=== PATIENT | female | born 1995 | race Caucasian/White ===

== ENCOUNTER 2017-03-21 12:04 | Emergency (ER) | payer BC ==
[2017-03-21] MEDS ORDERED: LORATADINE 10 MG TABLET PO ONE (12:55)
[2017-03-21] MEDS ORDERED: PSEUDOEPHEDRINE HCL 30 MG TABLET PO ONE (12:55)
[2017-03-21] MEDS ORDERED: IBUPROFEN 800 MG TABLET PO ONE (12:55)
--- NOTE | 2017-03-21 13:01 | ER Document Report ---
ED ENT - General Chief Complaint: Sore Throat Stated Complaint: SORE THROAT BLOODY MUCUS Time Seen by Provider: 03/21/17 12:40 Mode of Arrival: Ambulatory Information source: Patient Notes: 21-year-old female presents to ED for cough congestion sputum since Thursday. She states she also has a sore throat. Patient states she coughed up a little bit of mucus blood-streaked this morning. Patient states she is used NyQuil DayQuil and use the Mucinex this morning. TRAVEL OUTSIDE OF THE [place] IN LAST 30 DAYS: No - HPI Patient complains to provider of: Nose problem, Throat problem Onset: Other - Thursday Onset/Duration: Gradual Quality of pain: Achy Severity: Moderate Pain Level: 2 Context: Recent Illness Location of pain: Nose, Throat Associated symptoms: Congestion, Cough, Runny nose, Sinus drainage, Sore throat. denies: Fever Similar symptoms previously: Yes Recently seen / treated by doctor: No - Related Data Allergies/Adverse Reactions: Penicillins Allergy (Verified 03/21/17 12:05) Past Medical History - General Information source: Patient - Social History Smoking Status: Current Some Day Smoker Cigarette use (# per day): Yes - 2 cigarettes a week Chew tobacco use (# tins/day): No Smoking Education Provided: Yes - Less than 2 minutes Frequency of alcohol use: Social - Wine about weekly Drug Abuse: None Occupation: [employer] Lives with: Alone Family History: Hyperlipidemia, Hypertension, Malignancy Patient has suicidal ideation: No Patient has homicidal ideation: No - Past Medical History Cardiac Medical History: Reports: None Pulmonary Medical History: Reports: None EENT Medical History: Reports: None Neurological Medical History: Reports: None Endocrine Medical History: Reports: None Renal/ Medical History: Reports: None Malignancy Medical History: Reports: None GI Medical History: Reports: None Musculoskeltal Medical History: Reports None Skin Medical History: Reports None Psychiatric Medical History: Reports: None Traumatic Medical History: Reports: None Infectious Medical History: Reports: None Surgical Hx: Negative Past Surgical History: Reports: None - Immunizations Immunizations up to date: Yes Review of Systems - Review of Systems Constitutional: Recent illness EENT: Nose discharge, Sinus discharge, Throat pain Cardiovascular: No symptoms reported Respiratory: Cough, Sputum Gastrointestinal: No symptoms reported Genitourinary: No symptoms reported Female Genitourinary: No symptoms reported Musculoskeletal: No symptoms reported Skin: No symptoms reported Hematologic/Lymphatic: No symptoms reported Neurological/Psychological: No symptoms reported Physical Exam - Vital signs Vitals: Temp Pulse Resp BP Pulse Ox 98.2 F 65 16 113/75 98 03/21/17 12:10 03/21/17 12:10 03/21/17 12:10 03/21/17 12:10 03/21/17 12:10 Interpretation: Normal - General General appearance: Appears well, Alert - HEENT Head: Normocephalic, Atraumatic Eyes: Normal Pupils: PERRL Ears: Normal External canal: Normal Tympanic membrane: Normal Sinus: Normal Nasal: Purulent discharge, Swelling Mouth/Lips: Normal Mucous membranes: Normal Pharynx: Normal Neck: Normal - Respiratory Respiratory status: No respiratory distress Chest status: Nontender. No: Tender Breath sounds: Productive cough. No: Rales, Rhonchi, Stridor, Wheezing Chest palpation: Normal - Cardiovascular Rhythm: Regular Heart sounds: Normal auscultation Murmur: No - Abdominal Inspection: Normal Distension: No distension Bowel sounds: Normal Tenderness: Nontender Organomegaly: No organomegaly - Back Back: Normal, Nontender - Extremities General upper extremity: Normal inspection, Nontender, Normal color, Normal ROM , Normal temperature General lower extremity: Normal inspection, Nontender, Normal color, Normal ROM , Normal temperature, Normal weight bearing. No: Aj's sign - Neurological Neuro grossly intact: Yes Cognition: Normal Orientation: AAOx4 [place] Coma Scale Eye Opening: Spontaneous [place] Coma Scale Verbal: Oriented [place] Coma Scale Motor: Obeys Commands Junior Coma Scale Total: 15 Speech: Normal Motor strength normal: LUE, RUE, LLE, RLE Sensory: Normal - Psychological Associated symptoms: Normal affect, Normal mood - Skin Skin Temperature: Warm Skin Moisture: Dry Skin Color: Normal Course - Re-evaluation Re-evalutation: 03/21/17 13:04 Assessment consistent with an upper respiratory infection. Patient was treated with Sudafed, ibuprofen, and Claritin. Patient was recommended to take Mucinex , Sudafed, Claritin, and ibuprofen or Tylenol. Patient to follow-up with primary doctor. Patient was also recommended to use normal saline spray to the nose and salt and soda solution's gargles to help reduce the congestion cough and sputum. - Vital Signs Vital signs: Temp Pulse Resp BP Pulse Ox 97.7 F 66 18 119/82 98 03/21/17 13:35 03/21/17 13:35 03/21/17 13:35 03/21/17 13:35 03/21/17 13:35 Discharge - Discharge Clinical Impression: URI (upper respiratory infection) Qualifiers: URI type: unspecified URI Qualified Code(s): J06.9 - Acute upper respiratory infection, unspecified Condition: Stable Disposition: HOME, SELF-CARE Instructions: Family Physicians / Practices, Use of Rcno-Ahl-Xvqpzhi Ibuprofen ([facility]) Additional Instructions: UPPER RESPIRATORY ILLNESS: You have a viral infection of the respiratory passages -- a "cold." This common infection causes nasal congestion, drainage, and often sore throat and cough. It is highly contagious. The disease usually lasts about 10 to 14 days. There is no "cure" for the viral infection -- it must run its course. If there is a complication, such as bacterial infection in the nose, sinuses, middle ear, or bronchial tubes, antibiotics may be required. The antibiotics won't affect the virus. Drink plenty of fluids. A humidifier may help. An expectorant medication or decongestant may make you more comfortable. Use acetaminophen or ibuprofen for fever or aches. See the doctor if fever persists over two days, if there is any significant worsening of your symptoms, or if you simply fail to improve as expected. You have been given Sudafed Claritin and ibuprofen in the emergency room. You have a cold or virus. Many of the cold medicines that she can get over-the- counter or combination medications but they do not have enough of each individual ingredient. If you find one that has Sudafed 30 mg Mucinex 600 mg ibuprofen 400 mg or Tylenol 650 mg then this medication would be a good medication but it needs at least these doses of each medication. He can also gargle frequently with salt and soda solution to remove the mucus from the back your throat to prevent your cough. Nasal saline spray or gel to the nose will also decrease your cough and cold symptoms. USE OF ACETAMINOPHEN (Tylenol): Acetaminophen may be taken for pain relief or fever control. It's much safer than aspirin, offering a wider range of "safe" dosages. It is safe during . Some brand names are Tylenol, Panadol, Datril, Anacin 3, Tempra, and Liquiprin. Acetaminophen can be repeated every four hours. The following are maximum recommended dosages: >89 pounds or adults 650 mg to 900 mg Acetaminophen can be repeated every four hours. Maximum dose not to exceed 4000 mg a day. SMOKING: If you smoke, you should stop smoking. The tar and chemicals in cigarette smoke are harmful. Smoking has been shown to cause: emphysema chronic bronchitis lung cancer mouth and throat cancer stomach and pancreas cancer premature aging defects In addition, smoking increases ear and lung infections in children of smokers. Salt and soda solution 1 quart of water 1 tablespoon of salt 1 teaspoon of baking soda Mixed 3 ingredients together and boil for 1 minute Placed in a covered quart jar Use 1/2 ounce of cold solution to gargle 3 times a day FOLLOW-UP CARE: If you have been referred to a physician for follow-up care, call the physician s office for an appointment as you were instructed or within the next two days. If you experience worsening or a significant change in your symptoms, notify the physician immediately or return to the Emergency Department at any time for re-evaluation. Forms: Return to Work
[2017-03-21 13:36] VITALS: BP 119/82
== END 2017-03-21 13:36 | disposition home or self-care (01) ==
LOC: ER 12:04
DX: J06.9 Acute upper respiratory infection, unspecified (principal); F17.210 Nicotine dependence, cigarettes, uncomplicated; Z88.0 Allergy status to penicillin
CPT/HCPCS: 99282